=== PATIENT | female | born 1990 | race African-American/Black ===

== ENCOUNTER 2017-10-19 21:48 | Emergency (ER) | payer OTHER ==
[~2017-10-19] VITALS: Ht 162.6 cm; Wt 102.7 kg
[~2017-10-19 21:48] MED LIST: IBUP-2343 PO
[2017-10-19 22:51] LABS: BASOPHILS % (AUTO) 1.9 % (0.0-2.0); EOSINOPHILS % (AUTO) 1.7 % (1.0-6.0); HEMATOCRIT 35.6 % (36-46); HEMOGLOBIN 11.8 g/dL (12.0-16.0); LYMPHOCYTES % (AUTO) 36.7 % (22.0-44.0); MEAN CORPUSCULAR HEMOGLOBIN 27.3 pg (26.0-34.0); MEAN CORPUSCULAR HGB CONC 33.1 G/dL (31.0-37.0); MEAN CORPUSCULAR VOLUME 83 fL (80-100); MONOCYTES # (AUTO) 0.9 K/uL (0.1-1.0); MONOCYTES % (AUTO) 10.8 % (2.0-9.0); NEUTROPHILS # (AUTO) 3.9 K/uL (1.8-7.7); NEUTROPHILS % (AUTO) 48.9 % (40.0-70.0); PLATELET COUNT (AUTO) 315 K/uL (150-450); RED BLOOD CELL COUNT(AUTO) 4.31 MIL/uL (4.00-5.20); RED CELL DISTRIBUTION WIDTH 14.1 % (11.5-14.5)
[2017-10-19 23:03] LABS: ANION GAP 7 mmol/L (8-16); CALCIUM, TOTAL 8.7 mg/dL (8.8-10.5); CARBON DIOXIDE 26 mmol/L (22-29); CHLORIDE 106 mmol/L (98-107); GLOMERULAR FILTR. RATE CALC > 60 mL/min (>60); GLUCOSE,RANDOM 103 mg/dL (70-110); POTASSIUM 3.2 mmol/L (3.5-5.1); SODIUM SERUM 139 mmol/L (136-145); UREA NITROGEN, BLOOD 12 mg/dL (7-18)
[2017-10-19 23:11] LABS: ALANINE AMINOTRANSFERASE 35 U/L (12-78); ALBUMIN 3.2 g/dL (3.4-5.0); ALKALINE PHOSPHATASE 54 U/L (46-116); ASPARTATE AMINOTRANSFERASE 19 U/L (15-37); BILIRUBIN,TOTAL 0.5 mg/dL (0.1-1.0); HCG,QUANTITATIVE 435 mIU/mL (0-6)
[2017-10-20 01:03] VITALS: BP 119/67
== END 2017-10-20 01:20 | disposition home or self-care (01) ==
LOC: EMS 21:48
DX: M79.672 Pain in left foot (principal); M79.671 Pain in right foot; R06.02 Shortness of breath
CPT/HCPCS: 70450; 71046; 99285

== ENCOUNTER 2020-09-05 18:17 | Emergency (ER) | payer OTHER ==
[~2020-09-05] VITALS: Ht 162.6 cm; Wt 116.4 kg
[2020-09-05] MEDS ORDERED: HYDROCODONE/ACETAMINOPHEN 5-325 MG TABLET PO ONE (20:15)
[2020-09-05 20:34] VITALS: BP 139/84
== END 2020-09-05 20:43 | disposition home or self-care (01) ==
LOC: EMS 18:17
DX: H66.91 Otitis media, unspecified, right ear (principal); H60.91 Unspecified otitis externa, right ear
CPT/HCPCS: 99283

== ENCOUNTER 2021-07-26 18:11 | Emergency (ER) | payer SELFPAY ==
[~2021-07-26] VITALS: Ht 162.6 cm; Wt 105.5 kg
[2021-07-26 22:55] VITALS: BP 139/80
[2021-07-26 22:57] LABS: INFLUENZA TYPE A NEGATIVE FOR TYPE A (NEGATIVE); INFLUENZA TYPE B NEGATIVE FOR TYPE B (NEGATIVE)
== END 2021-07-26 23:00 | disposition home or self-care (01) ==
LOC: EMS 18:17
DX: B34.9 Viral infection, unspecified (principal); I10 Essential (primary) hypertension
CPT/HCPCS: 87804; 99283

== ENCOUNTER 2023-09-29 11:09 | Emergency (ER) | payer OTHER ==
[~2023-09-29] VITALS: Ht 160 cm; Wt 125.5 kg
[2023-09-29 11:18] VITALS: TEMP 98.4
[2023-09-29 11:51] LABS: EOSINOPHILS % (AUTO) 1.1 % (1.0-6.0); HEMATOCRIT 37.5 % (36-46); HEMOGLOBIN 12.3 g/dL (12.0-16.0); LYMPHOCYTES # (AUTO) 1.8 K/uL (1.0-4.8); LYMPHOCYTES % (AUTO) 29.5 % (22.0-44.0); MEAN CORPUSCULAR HGB CONC 32.8 G/dL (31.0-37.0); MEAN CORPUSCULAR VOLUME 85 fL (80-100); MONOCYTES # (AUTO) 0.5 K/uL (0.1-1.0); MONOCYTES % (AUTO) 7.9 % (2.0-9.0); NEUTROPHILS # (AUTO) 3.7 K/uL (1.8-7.7); NEUTROPHILS % (AUTO) 60.5 % (40.0-70.0); PLATELET COUNT (AUTO) 279 K/uL (150-450); RED BLOOD CELL COUNT(AUTO) 4.39 MIL/uL (4.00-5.20); RED CELL DISTRIBUTION WIDTH 15.6 % (11.5-14.5); WHITE BLOOD COUNT (AUTO) 6.1 K/uL (4.5-11.0)
[2023-09-29 13:50] VITALS: BP 132/81; PULSE 84; RESP 16
== END 2023-09-29 14:43 | disposition home or self-care (01) ==
LOC: EMS 11:09
DX: O20.0 Threatened abortion (principal); I10 Essential (primary) hypertension; Z3A.01 Less than 8 weeks gestation of pregnancy
CPT/HCPCS: 76801; 84702; 85025; 86901; 99284

== ENCOUNTER 2023-11-08 18:02 | Emergency (ER) | payer OTHER ==
[~2023-11-08] VITALS: Ht 160 cm; Wt 134.1 kg
[2023-11-08 18:06] VITALS: BP 130/77; PULSE 85; RESP 16; TEMP 98.3
[2023-11-08] MEDS: LIDOCAINE 5% TRANSDERMAL PATCH TD ONE (19:19)
[2023-11-08] MEDS: ACETAMINOPHEN 325 MG TABLET PO ONE (19:19)
[2023-11-08] MEDS ORDERED: LIDO700A15 TP (19:34)
[2023-11-08] MEDS ORDERED: ACET-2080 PO (19:35)
== END 2023-11-08 19:47 | disposition home or self-care (01) ==
LOC: EMS 18:05
DX: O26.891 Other specified pregnancy related conditions, first trimester (principal); M25.512 Pain in left shoulder; I10 Essential (primary) hypertension; Z3A.13 13 weeks gestation of pregnancy
CPT/HCPCS: 99283